=== PATIENT | male | born 1970 | race Caucasian/White ===

== ENCOUNTER 2018-05-08 08:56 | Observation (INO) | payer OTHER ==
[~2018-05-08] VITALS: Ht 177.8 cm; Wt 105.9 kg
[2018-05-08 10:11] LABS: BASOPHIL (%) 0.6 % (0-1); BASOPHIL COUNT 0.1 K/uL (0-0.1); EOSINOPHIL (%) 6.2 % (0-5); EOSINOPHIL COUNT 0.6 K/uL (0-0.3); HEMATOCRIT 41.8 % (38.0-50.0); HEMOGLOBIN 14.1 G/DL (12.5-16.6); IMMATURE GRANULOCYTE (%) 0.3 % (0.0-0.7); LYMPHOCYTE (%) 18.1 % (15-42); LYMPHOCYTE COUNT 1.6 K/uL (1.0-2.8); MCHC 33.7 G/DL (30.0-36.0); MCV 97.9 FL (86-99); MONOCYTE (%) 8.4 % (3-12); MONOCYTE COUNT 0.8 K/uL (0-0.8); NEUTROPHIL (%) 66.4 % (45-76); PLATELET COUNT 253 K/uL (156-360); RBC DIS.WIDTH-CV 14.5 % (11.8-14.6); RBC DIS.WIDTH-SD 52.1 % (39-53); RED BLOOD COUNT 4.27 M/uL (4.00-5.50); WHITE BLOOD COUNT 9.1 K/uL (4.1-10.2)
[2018-05-08 10:14] LABS: INTER. NORMALIZED RATIO 1.1
[2018-05-08 10:17] LABS: PTT 29.9 SEC (25-37)
[2018-05-08 10:21] LABS: CHLORIDE 108 mEq/L (99-109); POTASSIUM 4.4 mEq/L (3.7-5.4); SODIUM 141 mEq/L (136-147)
[2018-05-08 10:22] LABS: GLUCOSE 92 mg/dL (70-99)
[2018-05-08 10:26] LABS: CREATININE 0.8 mg/dL (0.6-1.3); GFR ESTIMATE (CALCULATED) > 59 mL/min/ (58.99-99999)
[2018-05-08 10:27] LABS: UREA NITROGEN (BUN) 22 mg/dL (9-23)
[2018-05-08 10:30] LABS: TROP-I INTERPRETATION NEGATIVE; TROPONIN-I < 0.01 ng/mL (0.0-0.30)
[2018-05-08] MEDS ORDERED: ATENOLOL25 MG PO (14:06)
[2018-05-08] MEDS ORDERED: LISINOPRIL5 MG PO (14:06)
[2018-05-08 16:37] LABS: TROP-I INTERPRETATION NEGATIVE; TROPONIN-I < 0.01 ng/mL (0.0-0.30)
[2018-05-08 16:40] VITALS: BP 130/68
[2018-05-08 20:00] VITALS: BP 116/70
[2018-05-08 22:29] LABS: TROP-I INTERPRETATION NEGATIVE; TROPONIN-I < 0.01 ng/mL (0.0-0.30)
[2018-05-09 00:01] VITALS: BP 100/51
[2018-05-09 04:15] VITALS: BP 112/58
[2018-05-09 05:43] LABS: HDL CHOLESTEROL 36 MG/DL (Desirable>=40); LDL CHOLESTEROL 141 mg/dL (Desirable<100); NON-HDL CHOLESTEROL 155 mg/dL (Desirable<160); TOTAL CHOLESTEROL 191 mg/dL (Desirable<200); TRIGLYCERIDES 72 MG/DL (Normal: <150)
[2018-05-09 08:01] VITALS: BP 120/57
[2018-05-09 08:35] VITALS: BP 147/72
[2018-05-09] MEDS ORDERED: ASPIR-LOW81 MG PO (08:58)
[2018-05-09 11:07] LABS: HEMOGLOBIN A1c (GLYCOHEMOGLOB) 5.6 % (Below 5.7)
== END 2018-05-09 10:36 | disposition home or self-care (01) ==
LOC: EME 08:56 → 4SOUTH 13:42 → EDOF 13:42 → ENRESERV 13:52 → 4SOUTH 16:29
PROVIDERS: Emergency Medicine; Internal Medicine
DX: R07.9 Chest pain, unspecified (principal); I10 Essential (primary) hypertension; E66.9 Obesity, unspecified; R91.8 Other nonspecific abnormal finding of lung field; R42 Dizziness and giddiness; R05 Cough; Z82.49 Family history of ischemic heart disease and other diseases of the circulatory system; F17.210 Nicotine dependence, cigarettes, uncomplicated; Z91.041 Radiographic dye allergy status
CPT/HCPCS: 71045; 71275; 80048; 80061; 83036; 84484; 85025; 85610; 85730; 93005; 99281; 99285; G0378; J1200; J2930; J7030